=== PATIENT | male | born 1980 | race Caucasian/White ===

== ENCOUNTER 2018-08-12 10:37 | Emergency (ER) | payer MEDICAID ==
[2018-08-12 10:40] VITALS: BP 123/93
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
--- NOTE | 2018-08-12 11:09 | RADIOLOGY IMAGING REPORT ---
FACILITY: [facility] - [place] PATIENT NAME: Rustam Hylton : 1980 MR: [id number] V: [id number] EXAM DATE: ORDERING PHYSICIAN: GIAN CALLEJAS TECHNOLOGIST: Location: [facility] [place] Patient: Rustam Hylton : 1980 Visit/Account:[id number] Date of Sevice: 08/12/2018 Technique: SHOULDER MIN 2 VIEWS LEFT HISTORY: Slept on shoulder incorrectly Comparison studies: None FINDINGS: There is no acute fracture. The alignment of the left shoulder is preserved. Soft tissues a re unremarkable. IMPRESSION: 1. Normal left shoulder radiographs. Report Dictated By: Frantz Andersen DO at 08/12/2018 11:02 AM Report E-Signed By: Frantz Andersen DO at 08/12/2018 11:03 AM WSN:[id number]
[2018-08-12] MEDS ORDERED: IBUPROFEN 800 MG TAB PO ONE (11:30)
== END 2018-08-12 11:53 | disposition home or self-care (01) ==
LOC: ER 11:21
DX: M25.512 Pain in left shoulder (principal)
CPT/HCPCS: 73030; 99283; A4565